=== PATIENT | male | born 1960 | race Caucasian/White ===

== ENCOUNTER 2018-12-12 14:57 | Observation (INO) | payer BC ==
[2018-12-12 15:44] LABS: Protime INR 1.04
[2018-12-12 15:48] LABS: Absolute Lymphocytes (CBC) 1.7 K/uL (0.7-4.9); Absolute Monocytes 0.8 K/uL (0.1-1.3); Absolute Neutrophil 13.2 K/uL (1.8-8.0); Basophils % 0.2 % (0-1.3); Eosinophils % 0.8 % (0-4.4); Hematocrit 48.4 % (39.6-49.0); Lymphocytes % 10.8 % (15.3-44.8); MPV 7.6 fL (7.6-11.3); Monocytes % 4.8 % (3.3-12.3); RBC Red Blood Cell Count 5.25 M/uL (4.33-5.43)
--- NOTE | 2018-12-12 15:58 | RAD REPORT ---
EXAM DESCRIPTION: CT - Head Brain Wo Cont - 12/12/2018 3:52 pm CLINICAL HISTORY: MENTAL STATUS CHANGE Headache, drowsiness COMPARISON: No comparisons TECHNIQUE: All CT scans are performed using dose optimization technique as appropriate and may inclu de automated exposure control or mA/KV adjustment according to patient size. FINDINGS: No intracranial hemorrhage, hydrocephalus or extra-axial fluid collection.No areas of brai n edema or evidence of midline shift. The paranasal sinuses and mastoids are essentially clear. The calvarium is intact. IMPRESSION: No acute intracranial abnormality.
--- NOTE | 2018-12-12 15:58 | RAD REPORT ---
EXAM DESCRIPTION: RAD - Chest Single View - 12/12/2018 3:47 pm CLINICAL HISTORY: DYSPNEA Chest pain. COMPARISON: No comparisons FINDINGS: Portable technique limits examination quality. The lungs are grossly clear. The heart is normal in size. No displaced fractures. IMPRESSION: No acute intrathoracic process suspected.
[2018-12-12 16:00] LABS: ALT/SGPT 23 U/L (12-78); AST/SGOT 15 U/L (15-37); Albumin 4.1 g/dL (3.4-5.0); Alkaline Phosphatase 53 U/L (45-117); BUN Blood Urea Nitrogen 16 mg/dL (7-18); Bicarbonate 22 mmol/L (21-32); Bilirubin Direct 0.2 mg/dL (0-0.2); Bilirubin Total 0.7 mg/dL (0.2-1.0); Creatine Phosphokinase 60 U/L (39-308); Glucose Level 152 mg/dL (74-106); Magnesium 1.8 mg/dL (1.8-2.4); NT PRO-BNP 44 pg/mL (<125); Potassium 3.6 mmol/L (3.5-5.1); Protein, Total 7.6 g/dL (6.4-8.2); Sodium Level 139 mmol/L (136-145); Troponin (Emerg Dept Use Only) < 0.02 ng/mL (0.0-0.045)
[2018-12-12] MEDS ORDERED: ONDANSETRON 4 MG/2 ML VIAL ONE (16:03)
[2018-12-12] MEDS ORDERED: NA CHLORIDE 0.9% 1,000 ML ONE (17:35)
[2018-12-12 18:05] LABS: Arterial Blood Carboxyhemoglob 0.9 % (0-1.5); Blood Gas Oxyhemoglobin 93.9 % (94-97); Blood O2 Saturation 95.8 % (92-98.5)
[2018-12-12 19:18] LABS: Barbiturates NEGATIVE (NEGATIVE); Benzodiazepines NEGATIVE (NEGATIVE); Cocaine NEGATIVE (NEGATIVE); METHAMPHETAM NEGATIVE (NEGATIVE); Methadone NEGATIVE (NEGATIVE); Opiates NEGATIVE (NEGATIVE); Phencyclidine NEGATIVE (NEGATIVE); THC Cannibis POSITIVE (NEGATIVE)
[2018-12-12 20:08] LABS: Urine Glucose NEGATIVE (NEG); Urine Specific Gravity 1.015 (1.005-1.030)
[2018-12-12 20:09] LABS: Urine Blood NEGATIVE (NEG); Urine Protein NEGATIVE (NEG); Urine pH 5.5 (5.0-7.0)
--- NOTE | 2018-12-12 20:17 | EDPHYS ---
Physician Documentation [facility] Name: Abhijit Bethea Age: 57 yrs Sex: Male : 1960 Arrival Date: 12/12/2018 Time: 14:58 Bed 8 Private MD: ED Physician Francisco Lanier HPI: 12/12 16:01 This 57 yrs old Male presents to ER via Ambulatory with complaints of jr8 Confusion, Vomiting. 16:01 The patient presents with confusion, disorientation. Onset: The symptoms/episode jr8 began/occurred acutely, today. Possible causes: unknown. Associated signs and symptoms: Pertinent positives: headache, nausea, vomiting. Current symptoms: In the emergency department the patient's symptoms are unchanged from the initial presentation. Patient's baseline: Neuro: alert and fully oriented, Motor: no deficits, Ambulation: walks without assistance, Speech: normal. The patient has not experienced similar symptoms in the past. The patient has not recently seen a physician. Family stated that he was fine yesterday and earlier today. Sudden onset confusion and nausea/vomiting. Family stated that he had a headache prior to all of this. Smokes marajuana daily. Patient is visiting from [place]. Patient aware that he is confused and not normal. Repetitive speech . Historical: - Allergies: 15:23 No Known Allergies; ss - PMHx: 15:23 "border line diabetic"; ss - Immunization history:: Adult Immunizations up to date. - Social history:: Smoking status: Patient/guardian denies using tobacco, Patient uses street drugs, marijuana. - Ebola Screening: : Patient denies exposure to infectious person Patient denies travel to an Ebola-affected area in the 21 days before illness onset. ROS: 16:01 Eyes: Negative for injury, pain, redness, and discharge, ENT: Negative for injury, jr8 pain, and discharge, Neck: Negative for injury, pain, and swelling, Cardiovascular: Negative for chest pain, palpitations, and edema, Respiratory: Negative for shortness of breath, cough, wheezing, and pleuritic chest pain, Back: Negative for injury and pain, MS/Extremity: Negative for injury and deformity, Skin: Negative for injury, rash, and discoloration. 16:01 Abdomen/GI: Positive for nausea and vomiting, Negative for abdominal pain, diarrhea, constipation, abdominal cramps, abdominal distension. 16:01 Neuro: Positive for altered mental status, dizziness, headache. Exam: 16:01 Eyes: Pupils equal round and reactive to light, extra-ocular motions intact. Lids and jr8 lashes normal. Conjunctiva and sclera are non-icteric and not injected. Cornea within normal limits. Periorbital areas with no swelling, redness, or edema. ENT: Nares patent. No nasal discharge, no septal abnormalities noted. Tympanic membranes are normal and external auditory canals are clear. Oropharynx with no redness, swelling, or masses, exudates, or evidence of obstruction, uvula midline. Mucous membranes moist. Neck: Trachea midline, no thyromegaly or masses palpated, and no cervical lymphadenopathy. Supple, full range of motion without nuchal rigidity, or vertebral point tenderness. No Meningismus. Cardiovascular: Regular rate and rhythm with a normal S1 and S2. No gallops, murmurs, or rubs. Normal PMI, no JVD. No pulse deficits. Respiratory: Lungs have equal breath sounds bilaterally, clear to auscultation and percussion. No rales, rhonchi or wheezes noted. No increased work of breathing, no retractions or nasal flaring. Abdomen/GI: Soft, non-tender, with normal bowel sounds. No distension or tympany. No guarding or rebound. No evidence of tenderness throughout. Back: No spinal tenderness. No costovertebral tenderness. Full range of motion. Skin: Warm, dry with normal turgor. Normal color with no rashes, no lesions, and no evidence of cellulitis. MS/ Extremity: Pulses equal, no cyanosis. Neurovascular intact. Full, normal range of motion. 16:01 Neuro: Orientation: to person, place, Mentation: able to follow commands, confused, Memory: immediate memory is intact, remote memory is impaired, recent memory is impaired, Cranial nerves: CN I not tested, CN II- XII are normal as tested, visual barone are intact. extraocular movements are intact, Facial palsy and sensory deficits are absent. Nystagmus is absent. Speech is clear and appropriate. Tongue strength is normal, Cerebellar function: normal finger to nose testing, heel to post testing is normal, Motor: moves all fours, strength is 5/5 in all extremities, Sensation: no obvious gross deficits, Gait: not tested. seizure activity, is not displayed by the patient, Abnormal movements: there are no abnormal movements. Vital Signs: 15:25 BP 128 / 85; Pulse 62; Resp 18; Pulse Ox 99% on R/A; Weight 99.79 kg; Height 5 ft. 11 ss in. (180.34 cm); Pain 0/10; 16:26 BP 118 / 84; Pulse 60; Resp 14; Pulse Ox 100% on R/A; dh3 17:41 BP 125 / 84; Pulse 73; Resp 15; Pulse Ox 99% on R/A; aj1 18:45 BP 122 / 85; Pulse 88; Resp 18; Pulse Ox 98% on R/A; aj1 19:45 BP 116 / 87; Pulse 74; Resp 18; Pulse Ox 98% ; aj1 20:45 BP 131 / 91; Pulse 79; Resp 18; Pulse Ox 97% on R/A; aj1 21:45 BP 133 / 84; Pulse 71; Resp 18; Pulse Ox 99% on R/A; aj1 22:45 BP 119 / 73; Pulse 83; Resp 18; Pulse Ox 97% on R/A; aj1 23:35 BP 137 / 80; Pulse 88; Resp 18; Temp 98.6; Pulse Ox 98% on R/A; aj1 15:25 Body Mass Index 30.68 (99.79 kg, 180.34 cm) ss 15:25 1455 ss NIH Stroke Scale Scores: 16:01 NIHSS Score: 1 jr8 MDM: 15:05 Patient medically screened. jr8 20:16 Data reviewed: vital signs, nurses notes, lab test result(s), EKG, radiologic studies, 8 CT scan. Data interpreted: Pulse oximetry: on room air is 98 %. Interpretation: normal. Counseling: I had a detailed discussion with the patient and/or guardian regarding: the historical points, exam findings, and any diagnostic results supporting the discharge/admit diagnosis, lab results, radiology results, the need for further work-up and treatment in the hospital. ED course: Discussed case with Dr. Patel. Will see him tomorrow in hospital. To have EEG and MRI ordered . 12/12 15:18 Order name: Basic Metabolic Panel; Complete Time: 16:07 8 12/12 15:18 Order name: CBC with Diff; Complete Time: 15:53 [facility] 12/12 15:18 Order name: LFT's; Complete Time: 16: 12/12 15:18 Order name: Magnesium; Complete Time: 16: 12/12 15:18 Order name: NT PRO-BNP; Complete Time: 16: 12/12 15:18 Order name: PT-INR; Complete Time: 15:53 12/12 15:18 Order name: Troponin (emerg Dept Use Only); Complete Time: 16: 12/12 15:18 Order name: UDS; Complete Time: 19:30 12/12 15:18 Order name: CPK; Complete Time: 16: 12/12 15:18 Order name: AMMONIA; Complete Time: 16: [facility] 12/12 15:19 Order name: TSH; Complete Time: 16:18 12/12 16:07 Order name: Blood Culture Adult (2) 12/12 16:30 Order name: ABG; Complete Time: 18:15 [facility] 12/12 19:21 Order name: Urine Dipstick--Ancillary (enter results); Complete Time: 20:17 eb 12/12 15:18 Order name: XRAY Chest (1 view); Complete Time: 16: 12/12 15:18 Order name: EKG; Complete Time: 15:19 12/12 15:18 Order name: Cardiac monitoring; Complete Time: 15:34 12/12 15:18 Order name: EKG - Nurse/Tech; Complete Time: 15:35 12/12 15:18 Order name: IV Saline Lock; Complete Time: 15:35 12/12 15:18 Order name: Labs collected and sent; Complete Time: 15:35 12/12 15:18 Order name: O2 Per Protocol; Complete Time: 15:35 12/12 15:18 Order name: O2 Sat Monitoring; Complete Time: 15:35 [facility] 12/12 15:18 Order name: CT Head Brain wo Cont; Complete Time: 16: 12/12 19:38 Order name: Glucose, Ancillary Testing; Complete Time: 19:42 EDMS 12/12 20:15 Order name: CSF Bacterial Antigens (tube 1); Complete Time: 21:19 12/12 20:15 Order name: Csf Culture jr12/12 20:15 Order name: Fluid Cell Count,Body; Complete Time: 21:12/12 20:15 Order name: Spinal Fluid Profile; Complete Time: :12/12 20:15 Order name: LP Setup; Complete Time: :53 12/12 20:15 Order name: LP Consents; Complete Time: 21:53 Administered Medications: 15:55 Drug: Zofran 4 mg Route: IVP; Site: right antecubital; [facility] 23:36 Follow up: Response: No adverse reaction [facility] 12/13 00:07 Follow up: Response: No adverse reaction [facility] 12/12 17:21 Drug: NS 0.9% 1000 ml Route: IV; Rate: 1000 ml; Site: right antecubital; 12/13 00:07 Follow up: IV Status: Completed infusion; IV Intake: 1000ml [facility] Disposition: 09:49 Co-signature as Attending Physician, Francisco Lanier MD I agree with the assessment and celeste plan of care. Disposition: 12/12/18 20:17 Hospitalization ordered by Ken Corado for Observation. Preliminary diagnosis is Altered mental status, unspecified. - Bed requested for Telemetry/MedSurg (observation). - Status is Observation. ak1 - Condition is Stable. - Problem is new. - Symptoms are unchanged. UTI on Admission? No NIH Stroke Scale - NIH Stroke Score Date: 12/12/2018 Time: 16:01 Total Score = 1 1a. Level of Consciousness (LOC) - 0(Alert) 1b. Level of Consciousness (LOC) (Year \\T\\ Age) - 1(One) 1c. LOC Commands (Open \\T\\ Closes Eyes/Spar Finisher) - 0(Both) 2. Best Gaze (Lateral Gaze Paresis) - 0(Normal) 3. Visual Field Loss - 0(No visual loss) 4. Facial Palsy - 0(Normal) 5a. Left Arm: Motor (10-second hold) - 0(No drift) 5b. Right Arm: Motor (10-second hold) - 0(No drift) 6a. Left Leg: Motor (5-second hold - always test supine) - 0(No drift) 6b. Right Leg: Motor (5-second hold - always test supine) - 0(No drift) 7. Limb Ataxia (finger/nose \\T\\ heel/post - test with eyes open) - 0(Absent) 8. Sensory Loss (pinprick arms/legs/face) - 0(Normal) 9. Best Language: Aphasia (description/naming/reading) - 0(No aphasia) 10. Dysarthria (speech clarity - read or repeat words) - 0(Normal) 11. Extinction and Inattention (visual/tactile/auditory/spatial/personal) - 0(No abnormality) Initials: jr8 Signatures: Dispatcher [employer] EDMS Veronica Bassett, RN RN Kyara Patrick RN RN aj1 Francisco Lanier MD MD cha Smirch, Shelby RN RN ss Robert Covington PA PA jr8 Jenna Reyes RN RN ak1 Janay Aguilera Corrections: (The following items were deleted from the chart) 00:19 12/12 20:17 Hospitalization Ordered by Ken Corado MD for Observation. eb Preliminary diagnosis is Altered mental status, unspecified. Bed requested for Telemetry/MedSurg (observation). Status is Observation. Condition is Stable. Problem is new. Symptoms are unchanged. UTI on Admission? No. jr8 12/13 00:25 00:19 12/12/2018 20:17 Hospitalization Ordered by Ken Corado MD for ak1 Observation. Preliminary diagnosis is Altered mental status, unspecified. Bed requested for Telemetry/MedSurg (observation). Status is Observation. Condition is Stable. Problem is new. Symptoms are unchanged. UTI on Admission? No. eb 01:16 00:25 12/12/2018 20:17 Hospitalization Ordered by Ken Corado MD for ak1 Observation. Preliminary diagnosis is Altered mental status, unspecified. Bed requested for Telemetry/MedSurg (observation). Status is Observation. Condition is Stable. Problem is new. Symptoms are unchanged. UTI on Admission? No. ak1
--- NOTE | 2018-12-12 20:17 | ER ---
Nurse's Notes [facility] Name: Abhijit Bethea Age: 57 yrs Sex: Male : 1960 Arrival Date: 12/12/2018 Time: 14:58 Bed 8 Private MD: Diagnosis: Altered mental status, unspecified Presentation: 12/12 14:50 Presenting complaint: Patient states: fatigue, diorientation and nausea/ vomiting that ss began this morning. Pt reports he felt "blah yesterday". Daughter states that she left this morning, but when she came back at noon today and noticed patient seemed a little "off". Denies fever, cough and/ or diarrhea. Transition of care: patient was not received from another setting of care. Onset of symptoms was December 12, 2018. Risk Assessment: Do you want to hurt yourself or someone else? Patient reports no desire to harm self or others. Initial Sepsis Screen: Does the patient meet any 2 criteria? No. Patient's initial sepsis screen is negative. Does the patient have a suspected source of infection? No. Patient's initial sepsis screen is negative. Care prior to arrival: None. 14:50 Method Of Arrival: Ambulatory ss 14:50 Acuity: MOSHE 3 ss Historical: - Allergies: 15:23 No Known Allergies; ss - PMHx: 15:23 "border line diabetic"; ss - Immunization history:: Adult Immunizations up to date. - Social history:: Smoking status: Patient/guardian denies using tobacco, Patient uses street drugs, marijuana. - Ebola Screening: : Patient denies exposure to infectious person Patient denies travel to an Ebola-affected area in the 21 days before illness onset. Screenin:46 Abuse screen: Denies threats or abuse. Denies injuries from another. Nutritional aj1 screening: No deficits noted. Tuberculosis screening: No symptoms or risk factors identified. 23:34 Fall Risk None identified. aj1 Assessment: 15:46 General: Appears in no apparent distress. comfortable, Behavior is calm, cooperative, aj1 appropriate for age. Pain: Denies pain. Neuro: Level of Consciousness is awake, alert, obeys commands, Oriented to person, place, time, situation, Patient answers most questions appropriately, but some questions he answers incorrectly such as how many grandchildren he has . Moves all extremities. Full function Reports feeling disoriented. Denies weakness paresthesias numbness. Cardiovascular: Heart tones S1 S2 present Patient's skin is warm and dry. Respiratory: Airway is patent Respiratory effort is even, unlabored, Respiratory pattern is regular, symmetrical. GI: Abdomen is round Reports nausea, vomiting. : No signs and/or symptoms were reported regarding the genitourinary system. EENT: No signs and/or symptoms were reported regarding the EENT system. Derm: No signs and/or symptoms reported regarding the dermatologic system. Skin is pink, warm \\T\\ dry. normal. Musculoskeletal: No signs and/or symptoms reported regarding the musculoskeletal system. Circulation, motion, and sensation intact. 16:45 Reassessment: Patient appears in no apparent distress at this time. No changes from aj1 previously documented assessment. Patient and/or family updated on plan of care and expected duration. Pain level reassessed. Patient is alert, oriented x 3, equal unlabored respirations, skin warm/dry/pink. 17:40 Reassessment: Patient and/or family updated on plan of care and expected duration. Pain aj1 level reassessed. General: Appears in no apparent distress. comfortable, Behavior is calm, cooperative, appropriate for age. Pain: Denies pain. Neuro: Level of Consciousness is awake, alert, obeys commands, Oriented to person, place, time, situation. Cardiovascular: Patient's skin is warm and dry. Respiratory: Airway is patent Respiratory effort is even, unlabored, Respiratory pattern is regular, symmetrical. Derm: Skin is pink, warm \\T\\ dry. normal. Musculoskeletal: No signs and/or symptoms reported regarding the musculoskeletal system. Circulation, motion, and sensation intact. 18:40 Reassessment: Patient appears in no apparent distress at this time. No changes from aj1 previously documented assessment. Patient and/or family updated on plan of care and expected duration. Pain level reassessed. Patient is alert, oriented x 3, equal unlabored respirations, skin warm/dry/pink. 19:45 Reassessment: Patient and/or family updated on plan of care and expected duration. Pain aj1 level reassessed. General: Appears in no apparent distress. comfortable, Behavior is calm, cooperative, appropriate for age. General: Appears Behavior is. Pain: Denies pain. Neuro: Level of Consciousness is awake, alert, obeys commands, confused, Oriented to person, place, time, situation, Surplus Property Disposal Agent are equal bilaterally Moves all extremities. Full function Speech is normal, Facial symmetry appears normal. Cardiovascular: Heart tones S1 S2 present Patient's skin is warm and dry. Rhythm is sinus rhythm. Respiratory: Airway is patent Respiratory effort is even, unlabored, Respiratory pattern is regular, symmetrical. Derm: No signs and/or symptoms reported regarding the dermatologic system. Skin is pink, warm \\T\\ dry. normal. Musculoskeletal: No signs and/or symptoms reported regarding the musculoskeletal system. Circulation, motion, and sensation intact. 20:15 Reassessment: Lumbar puncture performed by EDITH Dawn. aj1 20:45 Reassessment: Patient appears in no apparent distress at this time. No changes from aj1 previously documented assessment. Patient and/or family updated on plan of care and expected duration. Pain level reassessed. Patient is alert, oriented x 3, equal unlabored respirations, skin warm/dry/pink. 21:45 Reassessment: Patient and/or family updated on plan of care and expected duration. Pain aj1 level reassessed. General: Appears in no apparent distress. comfortable, Behavior is calm, cooperative, appropriate for age. Pain: Denies pain. Neuro: Level of Consciousness is awake, alert, obeys commands, confused, Oriented to person, place, time, situation, Speech is normal. Cardiovascular: Patient's skin is warm and dry. Rhythm is sinus rhythm. Respiratory: Airway is patent Respiratory effort is even, unlabored, Respiratory pattern is regular, symmetrical. Derm: Skin is pink, warm \\T\\ dry. normal. Musculoskeletal: Circulation, motion, and sensation intact. 22:45 Reassessment: Patient appears in no apparent distress at this time. No changes from aj1 previously documented assessment. Patient and/or family updated on plan of care and expected duration. Pain level reassessed. Patient is alert, oriented x 3, equal unlabored respirations, skin warm/dry/pink. 23:35 Reassessment: Patient appears in no apparent distress at this time. No changes from aj1 previously documented assessment. Patient and/or family updated on plan of care and expected duration. Pain level reassessed. Patient is alert, oriented x 3, equal unlabored respirations, skin warm/dry/pink. pt waiting for room assignment. 12/13 00:21 Reassessment: pt walked up to nurses station demanding his IV be removed, wanting to ak1 leave. pt attempting to leave ER with IV. pt at ER doors, RN removed pt IV, no bleeding noted. pt stated he is angry to not have been moved to a room upstairs. pt left with steady gait. 00:56 Reassessment: pt daughter contacted, pt daughter bringing him back. report called to ak Francesca for 214. Vital Signs: 12/12 15:25 BP 128 / 85; Pulse 62; Resp 18; Pulse Ox 99% on R/A; Weight 99.79 kg; Height 5 ft. 11 ss in. (180.34 cm); Pain 0/10; 16:26 BP 118 / 84; Pulse 60; Resp 14; Pulse Ox 100% on R/A; dh3 17:41 BP 125 / 84; Pulse 73; Resp 15; Pulse Ox 99% on R/A; aj1 18:45 BP 122 / 85; Pulse 88; Resp 18; Pulse Ox 98% on R/A; aj1 19:45 BP 116 / 87; Pulse 74; Resp 18; Pulse Ox 98% ; aj1 20:45 BP 131 / 91; Pulse 79; Resp 18; Pulse Ox 97% on R/A; aj1 21:45 BP 133 / 84; Pulse 71; Resp 18; Pulse Ox 99% on R/A; aj1 22:45 BP 119 / 73; Pulse 83; Resp 18; Pulse Ox 97% on R/A; aj1 23:35 BP 137 / 80; Pulse 88; Resp 18; Temp 98.6; Pulse Ox 98% on R/A; aj1 15:25 Body Mass Index 30.68 (99.79 kg, 180.34 cm) ss 15:25 1455 NIH Stroke Scale Scores: 16:01 NIHSS Score: 1 [facility] ED Course: 14:58 Patient arrived in ED. mr 15:05 Robert Covington PA is PHCP. jr8 15:05 Francisco Lanier MD is Attending Physician. jr8 15:16 Kyara Schulte, RN is Primary Nurse. aj1 15:22 Triage completed. ss 15:25 Arm band placed on right wrist. ss 15:26 Initial lab(s) drawn, by in, sent to lab. Inserted saline lock: 20 gauge in right dh3 antecubital area, using aseptic technique. Blood collected. 15:[address] via stretcher. kw1 15:42 CT completed. Patient tolerated procedure well. Patient moved back from CT. kw1 15:43 X-ray completed. Portable x-ray completed in exam room. Patient tolerated procedure la2 well. 15:46 Patient has correct armband on for positive identification. Bed in low position. Call aj1 light in reach. Side rails up X 1. power plant operator apprentice on. Pulse ox on. NIBP on. 15:46 No provider procedures requiring assistance completed. aj1 15:48 XRAY Chest (1 view) In Process Unspecified. EDMS 15:52 CT Head Brain wo Cont In Process Unspecified. EDMS 16:41 First set of blood cultures drawn by me. dh3 17:00 Second set of blood cultures drawn by me. dh3 18:51 Urine collected: urinal, clear. dh3 20:15 Assist provider with lumbar puncture: Set up LP tray. Performed by Robert SHARMA CSF aj1 is clear. Puncture site dressed with band aid, Procedure was successful. Patient tolerated well. 20:17 Ken Corado MD is Hospitalizing Provider. jr8 22:45 Report given to OLESYA West. aj1 23:34 Patient admitted, IV remains in place. aj1 12/13 00:23 IV discontinued, intact, bleeding controlled, No redness/swelling at site. Pressure ak1 dressing applied. 00:41 Primary Nurse role handed off by Kyara Schulte RN eb 01:09 Inserted saline lock: 22 gauge in left hand, using aseptic technique. tl2 Administered Medications: 12/12 15:55 Drug: Zofran 4 mg Route: IVP; Site: right antecubital; aj1 23:36 Follow up: Response: No adverse reaction aj1 12/13 00:07 Follow up: Response: No adverse reaction aj1 12/12 17:21 Drug: NS 0.9% 1000 ml Route: IV; Rate: 1000 ml; Site: right antecubital; 12/13 00:07 Follow up: IV Status: Completed infusion; IV Intake: 1000ml aj1 Intake: 00:07 IV: 1000ml; Total: 1000ml. aj1 Outcome: 12/12 20:17 Decision to Hospitalize by Provider. jr8 12/13 00:24 AMA Other house cleaner notified, charge nurse notified, Dr. Gabriel notified. ak1 00:25 Patient left the ED. ak1 01:16 Patient left the ED. ak1 NIH Stroke Scale - NIH Stroke Score Date: 12/12/2018 Time: 16:01 Total Score = 1 1a. Level of Consciousness (LOC) - 0(Alert) 1b. Level of Consciousness (LOC) (Year \\T\\ Age) - 1(One) 1c. LOC Commands (Open \\T\\ Closes Eyes/Gun Perforator) - 0(Both) 2. Best Gaze (Lateral Gaze Paresis) - 0(Normal) 3. Visual Field Loss - 0(No visual loss) 4. Facial Palsy - 0(Normal) 5a. Left Arm: Motor (10-second hold) - 0(No drift) 5b. Right Arm: Motor (10-second hold) - 0(No drift) 6a. Left Leg: Motor (5-second hold - always test supine) - 0(No drift) 6b. Right Leg: Motor (5-second hold - always test supine) - 0(No drift) 7. Limb Ataxia (finger/nose \\T\\ heel/post - test with eyes open) - 0(Absent) 8. Sensory Loss (pinprick arms/legs/face) - 0(Normal) 9. Best Language: Aphasia (description/naming/reading) - 0(No aphasia) 10. Dysarthria (speech clarity - read or repeat words) - 0(Normal) 11. Extinction and Inattention (visual/tactile/auditory/spatial/personal) - 0(No abnormality) Initials: jrVania Signatures: Dispatcher [employer] EDMA Veronica Bassett, Kyara Trimble RN, ch, RN RN del1 Emi Alexander XavierJoann brooks, RN RN Robert Anderson PA PA jr8 Jenna Reyes RN RN ak1 Olamide Ray RN RN ari2 Arielle Cabrera [facility] Cornelia Chung Kimberly 1 Janay Aguilera
[2018-12-12 20:53] LABS: CSF Glucose 65 mg/dL (40-70)
[2018-12-12 21:05] LABS: Appearance CLEAR (CLEAR); Body Fluid Source CSF; Color of fluid Colorless (COLORLESS)
[2018-12-12 21:06] LABS: Body Fluid WBC 2 /mm^3
[2018-12-12 21:07] LABS: Appearance CLEAR (CLEAR); Body Fluid Source CSF; Body Fluid WBC 1 /mm^3; Color of fluid Colorless (COLORLESS); Fluid Total Volume 8 ml
--- NOTE | 2018-12-12 23:15 | P.HP ---
Certification for Inpatient Patient admitted to: Observation With expected LOS: <2 Midnights Practitioner: I am a practitioner with admitting privileges, knowledge of patient current condition, hospital course, and medical plan of care. Services: Services provided to patient in accordance with Admission requirements found in Title 42 Section 412.3 of the Code of Federal Regulations Patient History Date of Service: 12/12/18 Reason for admission: acute encephalopathy History of Present Illness: Mr Bethea is a 57 years old male who is visiting his daughter, he is from [place], he has been here for about 1 week already. Today about 1 PM, his daughter noted him confused and disoriented. He was asking odd questions. There was not history of fever or chills. He was also complaining of headache this afternoon. The episode last for about 2 hours, then, the patient gradually start to be more coherent until resolve completely his symptoms. At my encounter , her was Ao x 4, and was able to tell me the history. He has never had similar symptoms in the past. He denied starting new medication, or having any drugs, however, UDS was positive for THC. Lab work was remarkable for leukocytosis, no fever. He got an LP, CSF proteins were elevated 64, otherwise normal. CT head shows no acute abnormalities. No nuchal rigidity, photophobia, nausea or vomiting. Allergies No Known Allergies Allergy (Unverified 12/12/18 21:32) Home medications list reviewed: Yes - Past Medical/Surgical History -: pre-diabetes Past Surgical History: Reviewed- Non-Contributory - Family History Family History: Reviewed- Non-Contributory - Social History Smoking Status: Never smoker Alcohol use: No CD- Drugs: Yes Place of Residence: Home Review of Systems 10-point ROS is otherwise unremarkable Physical Examination - Physical Exam General: Alert, In no apparent distress, Oriented x3 HEENT: Atraumatic, PERRLA, Mucous membr. moist/pink, EOMI, Sclerae nonicteric Neck: Supple, 2+ carotid pulse no bruit, No LAD, Without JVD or thyroid abnormality Respiratory: Clear to auscultation bilaterally, Normal air movement Cardiovascular: Regular rate/rhythm, Normal S1 S2 Gastrointestinal: Normal bowel sounds, No tenderness Musculoskeletal: No tenderness Integumentary: No rashes Neurological: Normal gait, Normal speech, Normal strength at 5/5 x4 extr, Normal tone, Normal affect Lymphatics: No axilla or inguinal lymphadenopathy - Studies Laboratory Data (last 24 hrs) 12/12/18 15:26: PT 12.3, INR 1.04 12/12/18 15:26: WBC 15.8 H, Hgb 16.6, Hct 48.4, Plt Count 277 12/12/18 15:26: Sodium 139, Potassium 3.6, BUN 16, Creatinine 0.93, Glucose 152 H, Magnesium 1.8, Total Bilirubin 0.7, AST 15, ALT 23, Alkaline Phosphatase 53 Microbiology Data (last 24 hrs): 12/12/18 20:15 Cerebral Spinal Fluid Gram Stain - Final 12/12/18 20:15 Cerebral Spinal Fluid CSF Bacterial Antigens (Tube 1) - Final Assessment and Plan - Problems (Diagnosis) (1) Acute encephalopathy Current Visit: Yes Status: Acute - Plan The patient will be admitted to the hospital due to transient AMS episode. Etiology is madiha, but no clear at this point. Dr Patel was consulted, he recommended to do an EEG and a brain MRI, however, the patient had a metal plate in his C-Spine. Will find out what material is and wether is compatible for MRI or not. Will monitor symptoms progression very close. - Advance Directives Does patient have a Living Will: No Does patient have a Durable POA for Healthcare: No - Code Status/Comfort Care Code Status Assessed: Yes Code Status: Full Code
[2018-12-13] MEDS ORDERED: ACETAMINOPHEN 500 MG TAB PO PRN (01:03)
[2018-12-13] MEDS ORDERED: ONDANSETRON 4 MG/2 ML VIAL IV PRN (01:03)
[2018-12-13 06:01] LABS: Absolute Lymphocytes (CBC) 3.3 K/uL (0.7-4.9); Absolute Monocytes 1.1 K/uL (0.1-1.3); Absolute Neutrophil 8.8 K/uL (1.8-8.0); Basophils % 0.3 % (0-1.3); Eosinophils % 0.8 % (0-4.4); Hematocrit 44.9 % (39.6-49.0); Lymphocytes % 24.9 % (15.3-44.8); MPV 7.5 fL (7.6-11.3); Monocytes % 7.9 % (3.3-12.3); RBC Red Blood Cell Count 4.85 M/uL (4.33-5.43)
[2018-12-13 06:20] LABS: Potassium 3.6 mmol/L (3.5-5.1)
--- NOTE | 2018-12-13 08:38 | EKG ---
Test Date: 2018-12-12 Test Time: 14:29:29 Android Platform Developer: NATHANIEL MEASUREMENT RESULTS: Intervals: Rate: 59 [place]: 172 QRSD: 124 QT: 434 QTc: 429 [place]: P: -4 [place]: 172 QRS: -52 T: -18 INTERPRETIVE STATEMENTS: Sinus bradycardia Left anterior fascicular block Abnormal ECG No previous ECG available for comparison Electronically Signed On 12-13-18 08:37:53 CDT by Frank Kelly
--- NOTE | 2018-12-13 08:50 | RAD REPORT ---
EXAM DESCRIPTION: - CP - 12/13/2018 8:27 am CLINICAL HISTORY: AMS Headache, drowsiness COMPARISON: No comparisons TECHNIQUE: Real-time sonographic evaluation of both carotid systems was performed. Doppler interroga tion was performed with waveform tracing bilaterally. FINDINGS: Normal high resistance waveforms are noted in both external carotid arteries. The common c arotid arteries and internal carotid arteries show normal low resistance waveforms. No significant plaque formation is seen. Peak systolic and end diastolic velocity values and the ICA/ CCA ratios are in the non-hemodynamically significant range. Antegrade flow seen in both vertebral arteries. IMPRESSION: No significant atherosclerotic changes noted. No evidence of a hemodynamically significant stenosis.
[2018-12-13] MEDS ORDERED: ENOXAPARIN 40 MG/0.4 ML SQ SCH (09:00)
[2018-12-13 13:43] LABS: Urine Appearance CLEAR; Urine Bilirubin NEGATIVE (NEG); Urine Blood NEGATIVE (NEG); Urine Color YELLOW; Urine Glucose NEGATIVE (NEG); Urine Protein NEGATIVE (NEG); Urine Specific Gravity 1.025 (1.005-1.030); Urine Urobilinogen 0.2 mg/dL (0.2-1.0); Urine pH 5.5 (5.0-7.0)
[2018-12-13 13:45] LABS: Urine Microscopic Reflex NO UMIC
--- NOTE | 2018-12-13 14:21 | P.SSS ---
Patient History Date of Service: 12/13/18 Reason for admission: acute encephalopathy History of Present Illness: Mr Bethea is a 57 years old male who is visiting his daughter, he is from [place], he has been here for about 1 week already. Today about 1 PM, his daughter noted him confused and disoriented. He was asking odd questions. There was not history of fever or chills. He was also complaining of headache this afternoon. The episode last for about 2 hours, then, the patient gradually start to be more coherent until resolve completely his symptoms. At my encounter , her was Ao x 4, and was able to tell me the history. He has never had similar symptoms in the past. He denied starting new medication, or having any drugs, however, UDS was positive for THC. Lab work was remarkable for leukocytosis, no fever. He got an LP, CSF proteins were elevated 64, otherwise normal. CT head shows no acute abnormalities. No nuchal rigidity, photophobia, nausea or vomiting. Allergies gluten Allergy (Verified 12/13/18 01:27) Itching/Hives/Rash Home Medications: Ascorbic Acid [Vitamin C with [place] Hips] 1 tab PO DAILY 12/13/18 Carvedilol [Coreg*] 25 mg PO BID 12/13/18 Melatonin [Melatonin*] 3 mg PO BEDTIME 12/13/18 Multivit-Min/FA/Lycopen/Lutein [Centrum Silver Men Tablet] 1 tab PO DAILY Ramipril [Altace] 10 mg PO DAILY 12/13/18 Vitamin E 1 tab PO DAILY 12/13/18 - Past Medical/Surgical History Has patient received pneumonia vaccine in the past: Yes Diabetic: No -: pre-diabetes -: cardiomyopathy -: HTN -: neck sx -: left shoulder sx -: appendectomy - Family History Family History: Reviewed- Non-Contributory - Social History Smoking Status: Never smoker Alcohol use: No CD- Drugs: Yes Caffeine use: Yes Place of Residence: Home Review of Systems 10-point ROS is otherwise unremarkable Physical Examination - Vital Signs Temperature: 97.6 F Blood Pressure: 103/77 Pulse: 66 Respirations: 16 Pulse Ox (%): 94 - Physical Exam General: Alert, In no apparent distress HEENT: Atraumatic, PERRLA, Mucous membr. moist/pink, EOMI, Sclerae nonicteric Neck: Supple, 2+ carotid pulse no bruit, No LAD, Without JVD or thyroid abnormality Respiratory: Clear to auscultation bilaterally, Normal air movement Cardiovascular: Regular rate/rhythm, Normal S1 S2 Gastrointestinal: Normal bowel sounds, No tenderness Musculoskeletal: No tenderness Integumentary: No rashes Neurological: Normal gait, Normal speech, Normal strength at 5/5 x4 extr, Normal tone, Normal affect Lymphatics: No axilla or inguinal lymphadenopathy - Studies Laboratory Data (last 24 hrs) 12/12/18 15:26: PT 12.3, INR 1.04 12/12/18 15:26: WBC 15.8 H, Hgb 16.6, Hct 48.4, Plt Count 277 12/12/18 15:26: Sodium 139, Potassium 3.6, BUN 16, Creatinine 0.93, Glucose 152 H, Magnesium 1.8, Total Bilirubin 0.7, AST 15, ALT 23, Alkaline Phosphatase 53 Microbiology Data (last 24 hrs): 12/12/18 16:41 Blood - Blood Anaerobic Blood Culture - Final 12/12/18 20:15 Cerebral Spinal Fluid Gram Stain - Final 12/12/18 20:15 Cerebral Spinal Fluid CSF Bacterial Antigens (Tube 1) - Final - Diagnosis (Problem(s)) (1) Acute encephalopathy Status: Acute Treatment Summary: Overall during the hospital stay patient main stable Patient was initially admitted to the hospital secondary to acute encephalopathy most likely secondary to marijuana use. Patient had head CT done here in the hospital which was negative for any acute abnormality. MRI of the brain was not able to be done as patient does have metal rods in the back. Patient initially was alert and oriented x1 and seemed to be confused on admission. However on examination today patient was alert and oriented x3 and was doing well overall. Patient had IV fluids here in the hospital. Neurology was consulted who recommended the patient can be discharged home under stable condition. Patient was able to ambulate doing well overall and thus was discharged home under stable condition - Disposition Disposition: ROUTINE DISCHARGE Condition: GOOD Patient Discharge Instructions: Please f.u with PCP and Neurology in 1 to 2 week post discharge. NO new medication Diet: Regular Activity: Ad jones
== END 2018-12-13 13:57 | disposition home or self-care (01) ==
LOC: ER 14:57 → ERHOLD 22:27 → 2ND 12-13 01:00
PROVIDERS: ADMIT Internal Medicine; ATTEND Internal Medicine
PROC: 009U3ZX Drainage of Spinal Canal, Percutaneous Approach, Diagnostic (ICD-10-PCS; principal; 2018-12-12)
DX: G93.40 Encephalopathy, unspecified (principal); I10 Essential (primary) hypertension
CPT/HCPCS: 36415; 62270; 70450; 71045; 80048; 80061; 80076; 80307; 81003; 82140; 82550; 82805; 82945; 82962; 83735; 83880; 84157; 84443; 84484; 85025; 85610; 86403; 87040; 87070; 89050; 93005; 93880; 96361; 96374; 99285; G0378; J1650; J2405; J7030